=== PATIENT | female | born 1955 | race Caucasian/White ===

== ENCOUNTER → 2016-05-27 | Outpatient (CLI) | payer OTHER ==
[~2016-05-27] MED LIST: CALCIUM 600 +1 EAC1 PO; CENTRUM SILVER1 EAC1 PO; CLARITIN10 MG PO; DITROPAN XL15 MG PO; ESTRACE0.5 MG PO; FEMHRT 0.5 MG-1 EACH PO; FISHOIL; IBUPROFEN 600600 M1 PO; LISINOPRIL10 MG PO; LORAZEPAM 0.50.5 MG PO; LORTAB 5 MG/5001 TA1 PO; PRAVACHOL 20 MG20 M1 PO; PRILOSEC 20 MG20 MG PO; PROTONIX40 M2 PO; VITAMIN C100 M1 PO; VITAMIN D400 UNI1 PO
== END ==
LOC: RAD 04:25
DX: Z12.31 Encounter for screening mammogram for malignant neoplasm of breast (principal)